=== PATIENT | male | born 1955 | race Caucasian/White ===

== ENCOUNTER 2016-12-18 13:04 | Day surgery (SDC) | payer OTHER ==
[~2016-12-18] VITALS: Ht 182.9 cm; Wt 99.8 kg
[~2016-12-18 13:04] MED LIST: 0.9% Sodium Chloride 1,000 ML IV SCH; SILD20TA14 PO; Sodium Chloride LOK Flush 10 mL Syringe IV PRN; fentaNYL-PF 50 mCg/mL 2 mL Inj IVPUSH PRN
[2016-12-18 13:56] VITALS: BP 127/90; PULSE 63; RESP 14; O2SAT 98
[2016-12-18 15:36] VITALS: BP 109/76; PULSE 77; RESP 16; O2SAT 93
[2016-12-18 15:47] VITALS: BP 128/78; PULSE 74; RESP 16; O2SAT 96
--- NOTE | 2016-12-18 16:18 | ENDO ---
[address] [address] ENDOSCOPY PROCEDURE PATIENT: PETRONA ARIZMENDI : 1955 MR#: [id number] ADMIT: 12/18/2016 JOB ID: [id number] PROCEDURE: Colonoscopy INDICATION: Screening. The patient's ASA classification is 2. Mallampati score is 2. MEDICATIONS: Versed 5 mg, fentanyl 100 mcg. INSTRUMENT USED: PCFH-180AL PREPARATION QUALITY: Good. PROCEDURE DETAILS: After informed consent was obtained, the patient was brought to the GI suite, where he was placed on oxygen via nasal cannula and monitored with continuous pulse oximeter, telemetry, and blood pressure monitoring. A time-out was performed. Then, he was placed in a left lateral decubitus position. Medications were administered for sedation. Digital rectal exam was performed and was unremarkable. The colonoscope was then inserted into the rectum and advanced under direct visualization to the cecum, which was identified by the presence of the ileocecal valve and appendiceal orifice. The colonoscope was then withdrawn back into the rectum, as the mucosa and lumen were examined. In the rectum, retroflexion was performed. Following retroflexion, remaining air in the rectum was suctioned, and procedure was completed. FINDINGS: 1. In the transverse colon, there was a diminutive polyp that was removed with cold biopsy forceps. 2. In the descending colon, there was approximately 5 mm sessile polyp that was removed with a hot snare. 3. In the rectum, there was a diminutive polyp that was removed with cold biopsy forceps. IMPRESSION: 1. Transverse colon polyp. 2. Descending polyp. 3. Rectal polyp. RECOMMENDATIONS: 1. Repeat colonoscopy pending polyp pathology results. 2. Avoid NSAIDs and anticoagulants for 72 hours. 3. Follow up in GI clinic as needed. COMPLICATIONS: None. ESTIMATED BLOOD LOSS: Less than 5 mL. MTDD
--- NOTE | 2016-12-22 11:52 | PATH ---
SURGICAL PATHOLOGY Attending Physician:Madina Peraza CASE STATUS: Signed Out PATIENT NAME: PETRONA ARIZMENDI PID: [id number] : 1955 DATE COLLECTED:12/18/2016 00:00 SPECIMEN: 1: Colon, Biopsy 2: Colon, Biopsy 3: Rectum, Biopsy CLINICAL HISTORY: 1). TRANSVERSE POLYP X1 2). DESCENDING POLYP 3). RECTAL POLYP FINAL DIAGNOSIS: 1.TRANSVERSE COLON POLYP: HYPERPLASTIC POLYP. 2.DESCENDING COLON POLYP: TUBULAR ADENOMA. 3.RECTAL POLYP: HYPERPLASTIC POLYP. ICD10 CODE D12.6 GROSS DESCRIPTION: Received are three formalin-filled containers, each labeled with the patient' s name. 1. Received in formalin, labeled with the patient' s name and "transverse polyp", is one fragment of null, soft tissue measuring 0.1 x 0.1 x 0.1 cm. The fragment is totally submitted in cassette 1A. 2. Received in formalin, labeled with the patient' s name and "descending colon polyp", is one fragment of null, soft tissue measuring 0.3 x 0.3 x 0.3 cm. The fragment is bisected and totally submitted in cassette 2A. 3. Received in formalin, labeled with the patient' s name and "rectal polyp", is one fragment of null, soft tissue measuring 0.1 x 0.1 x 0.1 cm. The fragment is totally submitted in cassette 3A. ([id number]) MICRO DESCRIPTION: See diagnosis. ICD-9 CODES: CPT CODES: 1: 87412 2: 86214 3: 44836 Electronically Signed Out Dillon Bingham MD [facility] [address], [place] [address] Technical component performed at [facility], [facility] [address], [place], [address]
== END 2016-12-18 23:59 | disposition home or self-care (01) ==
LOC: END 13:04
PROVIDERS: ATTEND Internal Medicine Gastroenterology
DX: Z12.11 Encounter for screening for malignant neoplasm of colon (principal); Z86.010 Personal history of colon polyps; D12.4 Benign neoplasm of descending colon; K63.5 Polyp of colon; K62.1 Rectal polyp; M17.0 Bilateral primary osteoarthritis of knee; Z87.891 Personal history of nicotine dependence
CPT/HCPCS: 45380; 45385; G0500; J7030